=== PATIENT | female | born 1960 | race Caucasian/White ===

== ENCOUNTER 2017-02-10 17:44 | Emergency (ER) | payer OTHER ==
[2017-02-10 19:09] VITALS: PULSE 76; RESP 18; O2SAT 92
[2017-02-10 19:24] VITALS: TEMP 100.2
--- NOTE | 2017-02-10 19:40 | UCPHY ---
H & P Time Seen by Provider: 02/10/17 18:27 Patient Type: New HPI/ROS: This patient presents with a chief complaint of cold symptoms with fever and cough since 3 days ago. Her fever has been low grade and has been associated with nasal congestion and sore throat but no ear pain. She thinks she might be short of breath but has no chest pain. Her dizziness is described as spinning with feeling off balance and has been associated with nausea but no vomiting. She had diarrhea yesterday but none today and she denies abdominal pain. The patient returns today from a trip to [facility] which began 1 week ago. REVIEW OF SYSTEMS: Constitutional: Low-grade fever, malaise, dizziness described as nearly spinning and off-balance and is associated with nausea. Eyes: No complaints ENT: Sore throat, congestion, no ear pain Respiratory: Cough, questionable shortness of breath Cardiac: No chest pain Gastrointestinal: Nausea, diarrhea and no vomiting no abdominal pain Genitourinary: Not addressed Musculoskeletal: Myalgias Skin: No rash Neurological: Headache Smoking Status: Never smoked Physical Exam: GENERAL: Well-appearing, well-nourished and in no acute distress. This patient appears to feel unwell. HEAD: Atraumatic, normocephalic. EYES: Pupils equal round and reactive to light, extraocular movements intact, sclera anicteric, conjunctiva are normal. ENT: TMs normal, nares patent, oropharynx clear without exudates. Moist mucous membranes. NECK: Normal range of motion, supple without lymphadenopathy or JVD. LUNGS: Breath sounds clear to auscultation bilaterally and equal. No wheezes rales or rhonchi. HEART: Regular rate and rhythm ABDOMEN: Soft, nontender, No guarding, no rebound. No masses appreciated. EXTREMITIES: Normal range of motion, NEUROLOGICAL: Cranial nerves II through XII grossly intact. Normal speech, normal gait. PSYCH: Normal mood, normal affect. SKIN: Warm, dry, normal turgor, no visible rashes or lesions. Constitutional: Initial Vital Signs Temperature (C) 37.9 C 02/10/17 19:03 Heart Rate 76 02/10/17 19:03 Respiratory Rate 18 02/10/17 19:03 Blood Pressure 133/83 H 02/10/17 19:03 O2 Sat (%) 92 02/10/17 19:03 O2 Delivery Mode Room Air Allergies/Adverse Reactions: amoxicillin [Amoxicillin] Allergy (Intermediate, Verified 02/10/17 19:01) Rash Home Medications: Medication Instructions Recorded Loratadine 02/10/17 Qvar 40 (*) 02/10/17 Singulair 02/10/17 Medical Decision Making Differential Diagnosis: I find nothing that would suggest that this patient has a bacterial infection and consequently I do not feel that antibiotics are indicated. - Data Points Laboratory Results: 02/10/17 18:45 Influenza Typ A,B (DFA) NEGATIVE FOR FLU (NEGATIVE) Departure - Departure Disposition: Home, Routine, Self-Care Clinical Impression: Acute bronchitis Qualifiers: Bronchitis organism: unspecified organism Qualified Code(s): J20.9 - Acute bronchitis, unspecified Upper respiratory infection Qualifiers: URI type: unspecified URI Qualified Code(s): J06.9 - Acute upper respiratory infection, unspecified Condition: Good Instructions: Acute Bronchitis (ED), Upper Respiratory Infection (ED) Additional Instructions: If your symptoms have improved in 5 or 6 days or completely resolved in 10 days you should be re-evaluated. Keep yourself well hydrated but do not force yourself to eat. Limit her activities until your feeling improved. Try a nasal decongestant spray such as Afrin. Adult Pain & Fever Control: We recommend Acetaminophen (Tylenol) and Ibuprofen (Motrin, Advil) for pain and fever control. When fever is high or pain severe, both drugs can be used at the same time, but at different intervals. Please note the time differences. Your dose is: Acetaminophen [650]mg every 4 to 6 hours ibuprofen [600]mg every [6] hours with food OR naproxen Sodium (Aleve) [440]mg every 12 hours. Note: do not take Acetaminophen with Hydrocodone (Vicodin, Lortab) or Oxycodone (Percocet). These medications also contain Acetaminophen. No more than 3000 mg of Acetaminophen should be taken in 24 hours (for an adult) . The maximal dose of ibuprofen that it is safe in a 24-hour period is 2400 mg. You may take 400 mg every 4 hours, 600 mg every 6 hours or 800 mg every 8 hours safely. Referrals: NONE *PRIMARY CARE P,. [Primary Care Provider] - As per Instructions - PQRS PQRS Measurement: Not applicable
[2017-02-10 20:30] VITALS: BP 138/83
== END 2017-02-10 20:13 | disposition home or self-care (01) ==
LOC: CED 17:44
DX: J20.9 Acute bronchitis, unspecified (principal); J06.9 Acute upper respiratory infection, unspecified
CPT/HCPCS: 87400-PO; 99203-PO; G0463-PO